=== PATIENT | female | born 1970 | race Asian ===

== ENCOUNTER 2016-12-06 15:44 | Emergency (ER) | payer OTHER ==
--- NOTE | 2016-12-06 16:16 | EKG ---
[facility] [address] [place] [address] Test Date: 2016-12-06 Test Time: 15:54:46 Pat Name: ABHIJEET QUEEN Department: Room: Gender: F Vp Rheumatology: : 1970 Requested By: TARAH PAIZ Order Number: [id number] Reading MD: Elio Jackman Measurements Intervals [place] Rate: 77 P: 48 SC: 154 QRS: 74 QRSD: 82 T: 20 QT: 378 QTc: 430 Interpretive Statements SINUS RHYTHM Electronically Signed On 12-11-2016 14:01:50 CDT by Elio Jackman
[2016-12-06 16:21] LABS: BILIRUBIN,URINE NEGATIVE (NEG); GLUCOSE,URINE NEGATIVE (NEG); NITRITE,URINE NEGATIVE (NEG); PROTEIN,URINE NEGATIVE (NEG-TRACE); UROBILINOGEN,URINE 0.2 mg/dL (0.2 mg/dL)
[2016-12-06 16:27] LABS: BACTERIA,URINE FEW /HPF (0-FEW); RBC,URINE RARE /HPF (0-2); SQUAMOUS EPITHELIAL CELL,UR MOD /LPF; WBC,URINE RARE /HPF (0-4)
[2016-12-06 16:28] LABS: BARBITURATES NEG (NEG); BENZODIAZEPINES NEG (NEG); CANNABINOIDS NEG (NEG); COCAINE NEG (NEG); METHADONE NEG (NEG); OPIATES NEG (NEG); PHENCYCLIDINE NEG (NEG)
[2016-12-06 16:30] LABS: BASO # 0.1 x10^3/uL (0.0-0.2); BASO % 1 % (0-3); EOS % 1 % (0-3); HEMATOCRIT 37.9 % (36.0-47.0); HEMOGLOBIN 13.2 g/dL (12.0-15.5); LYMPH # 1.6 x10^3/uL (1.0-4.8); LYMPH % 20 % (24-48); MEAN CORPUSCULAR HEMOGLOBIN 27 pg (25-35); MEAN CORPUSCULAR HGB CONC 35 g/dL (31-37); MEAN CORPUSCULAR VOLUME 78 fL (79-100); MONO % 3 % (0-9); NEUT % 75 % (31-73); PLATELET COUNT 314 x10^3/uL (140-400); RED BLOOD COUNT 4.89 x10^6/uL (3.50-5.40); WHITE BLOOD COUNT 7.9 x10^3/uL (4.0-11.0)
--- NOTE | 2016-12-06 16:37 | RAD ---
EXAM: CHEST 1 VIEW History: Dizziness, headache COMPARISON: None TECHNIQUE: Single portable radiograph of the chest FINDINGS: The cardiac silhouette is unremarkable. The lungs are clear bilaterally. The costophrenic sulci are clear and well demarcated. IMPRESSION: No radiographic evidence of an acute cardiopulmonary process.
[2016-12-06 16:43] LABS: CREATININE 0.6 mg/dL (0.6-1.0); GFR 108.6; POTASSIUM 3.6 mmol/L (3.5-5.1)
[2016-12-06 16:49] LABS: ALBUMIN 3.6 g/dL (3.4-5.0); ALBUMIN/GLOBULIN RATIO 0.8 (1.0-1.7); TOTAL BILIRUBIN 0.4 mg/dL (0.2-1.0); TOTAL PROTEIN 8.1 g/dL (6.4-8.2)
--- NOTE | 2016-12-06 16:52 | RAD ---
CT of the head without contrast, 12/06/2016: History: Dizziness and vomiting The ventricles are within normal limits in size. There is no shift of the midline structures. There is no evidence of acute intracranial hemorrhage or mass effect. IMPRESSION: No acute intracranial abnormality is detected. PQRS Compliance Statement: One or more of the following individualized dose reduction techniques were utilized for this examination: 1. Automated exposure control 2. Adjustment of the mA and/or kV according to patient size 3. Use of iterative reconstruction technique
[2016-12-06 16:53] VITALS: BP 131/79
--- NOTE | 2016-12-06 17:00 | ED.ADGEN ---
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 Patient states she woke up this morning as soon as she opened her eyes she felt as though the room was spinning around her. She states that it was worse with motion. She states she did not have any vomiting although she did feel very nauseous. Denies any abdominal pain, any chest pain or shortness of breath, any weakness numbness or tingling. She states that she does have nasal congestion but no ear pain, states that her nasal congestion is "there all the time". Patient denies any injuries, any vision changes, states that this is been persistent for about 7 hours, however en route to the emergency department and the car she states her symptoms improved. She states the symptoms were worse with moving her head from one side to the other, though not worse on one side versus the other, her only she is unable to induce the symptoms. She states that she has experienced similar symptoms previously but they have not been as intense or as prolonged. She has not taken any medications prior to coming to the ED. She states that her symptoms are significantly improved at this time. Review of Systems Review of Systems Constitutional: Denies fever or chills. [] Eyes: Denies change in visual acuity. [] HENT: Denies nasal congestion or sore throat. [] Respiratory: Denies cough or shortness of breath. [] Cardiovascular: Denies chest pain or edema. [] GI: Denies abdominal pain, vomiting, bloody stools or diarrhea. [] Nausea. : Denies dysuria. [] Musculoskeletal: Denies back pain or joint pain. [] Integument: Denies rash. [] Neurologic: Denies headache, focal weakness or sensory changes. Vertiginous symptoms worsened with motion. Nausea. Endocrine: Denies polyuria or polydipsia. [] Lymphatic: Denies swollen glands. [] Psychiatric: Denies depression or anxiety. [] Current Medications Current Medications Current Medications Medications (Trade) Dose Ordered Sig/Trae Start Time Stop Time Status Last Admin Dose Admin Meclizine HCl (Antivert) 25 mg 1X ONCE 12/06/16 17:15 12/06/16 17:16 DC 12/06/16 17:12 25 MG Allergies Allergies Allergies Coded Allergies Type Severity Reaction Last Updated Verified No Known Drug Allergies 12/06/16 No Physical Exam Physical Exam Constitutional: Well developed, well nourished, no acute distress, non-toxic appearance. [] HENT: Normocephalic, atraumatic, bilateral external ears normal, oropharynx moist, no oral exudates, nose normal. [] Eyes: PERRLA, EOMI, conjunctiva normal, no discharge. [] Neck: Normal range of motion, no tenderness, supple, no stridor. [] Cardiovascular:Heart rate regular rhythm, no murmur, S1, S2, rubs or gallops. [] Lungs & Thorax: Bilateral breath sounds clear to auscultation, no wheezing, rhonchi, rales. No chest or crepitus or tenderness. [] Abdomen: Bowel sounds normal, soft, no tenderness, no rebound, rigidity, no guarding, no masses, no pulsatile masses. [] Skin: Warm, dry, no erythema, no rash. [] Back: No tenderness, no CVA tenderness. [] Extremities: No tenderness, no cyanosis, no clubbing, ROM intact, no edema. [] Neurologic: Alert and oriented X 3, normal motor function, normal sensory function, no focal deficits noted. Normal neurologic examination, no nystagmus. [] Psychologic: Affect normal, judgement normal, mood normal. [] Current Patient Data Vital Signs Vital Signs Date Time Temp Pulse Resp B/P (MAP) Pulse Ox O2 Delivery O2 Flow Rate FiO2 12/06/16 16:53 76 18 131/79 (96) 99 Room Air Lab Values Laboratory Tests Test 12/06/16 15:57 12/06/16 16:05 Urine Collection Type Void Urine Color Yellow Urine Clarity Clear Urine pH 6.0 Urine Specific [place] 1.020 Urine Protein Negative mg/dL (NEG-TRACE) Urine Glucose (UA) Negative mg/dL (NEG) Urine Ketones (Stick) Negative mg/dL (NEG) Urine Blood Negative (NEG) Urine Nitrite Negative (NEG) Urine Bilirubin Negative (NEG) Urine Urobilinogen Dipstick 0.2 mg/dL (0.2 mg/dL) Urine Leukocyte Esterase Negative (NEG) Urine RBC Rare /HPF (0-2) Urine WBC Rare /HPF (0-4) Urine Squamous Epithelial Cells Mod /LPF Urine Bacteria Few /HPF (0-FEW) Urine Mucus Marked /LPF Urine Opiates Screen Neg (NEG) Urine Methadone Screen Neg (NEG) Urine Barbiturates Neg (NEG) Urine Phencyclidine Screen Neg (NEG) Urine Amphetamine/Methamphetamine Neg (NEG) Urine Benzodiazepines Screen Neg (NEG) Urine Cocaine Screen Neg (NEG) Urine Cannabinoids Screen Neg (NEG) Urine Ethyl Alcohol Neg (NEG) White Blood Count 7.9 x10^3/uL (4.0-11.0) Red Blood Count 4.89 x10^6/uL (3.50-5.40) Hemoglobin 13.2 g/dL (12.0-15.5) Hematocrit 37.9 % (36.0-47.0) Mean Corpuscular Volume 78 fL (79-100) L Mean Corpuscular Hemoglobin 27 pg (25-35) Mean Corpuscular Hemoglobin Concent 35 g/dL (31-37) Red Cell Distribution Width 13.0 % (11.5-14.5) Platelet Count 314 x10^3/uL (140-400) Neutrophils (%) (Auto) 75 % (31-73) H Lymphocytes (%) (Auto) 20 % (24-48) L Monocytes (%) (Auto) 3 % (0-9) Eosinophils (%) (Auto) 1 % (0-3) Basophils (%) (Auto) 1 % (0-3) Neutrophils # (Auto) 5.9 x10^3uL (1.8-7.7) Lymphocytes # (Auto) 1.6 x10^3/uL (1.0-4.8) Monocytes # (Auto) 0.3 x10^3/uL (0.0-1.1) Eosinophils # (Auto) 0.1 x10^3/uL (0.0-0.7) Basophils # (Auto) 0.1 x10^3/uL (0.0-0.2) Sodium Level 135 mmol/L (136-145) L Potassium Level 3.6 mmol/L (3.5-5.1) Chloride Level 101 mmol/L (98-107) Carbon Dioxide Level 26 mmol/L (21-32) Anion Gap 8 (6-14) Blood Urea Nitrogen 12 mg/dL (7-20) Creatinine 0.6 mg/dL (0.6-1.0) Estimated GFR (Cockcroft-Gault) 108.6 BUN/Creatinine Ratio 20 (6-20) Glucose Level 159 mg/dL (70-99) H Calcium Level 9.0 mg/dL (8.5-10.1) Total Bilirubin 0.4 mg/dL (0.2-1.0) Aspartate Amino Transferase (AST) 24 U/L (15-37) Alanine Aminotransferase (ALT) 30 U/L (14-59) Alkaline Phosphatase 48 U/L (46-116) Troponin I Quantitative < 0.017 ng/mL (0.000-0.055) Total Protein 8.1 g/dL (6.4-8.2) Albumin 3.6 g/dL (3.4-5.0) Albumin/Globulin Ratio 0.8 (1.0-1.7) L Laboratory Tests 12/06/16 16:05 Laboratory Tests 12/06/16 16:05 EKG EKG EC: Sinus rhythm, heart rate 77 bpm, upright axis, QTC of 4:30, MO 154, QRS of 82, contour normality is noted in V3, no ST elevation or depression, abnormal ECG, does not meet STEMI criteria. As interpreted by me. [] Radiology/Procedures Radiology/Procedures [] [facility] [address] [place] [address] IMAGING REPORT Signed PATIENT: ABHIJEET QUEEN ACCOUNT: [id number] : 1970 LOCATION: ER AGE: 46 SEX: F EXAM STATUS: PRE ER ORD. PHYSICIAN: TARAH PAIZ DO REASON: Dizziness PROCEDURE: CHEST AP ONLY EXAM: CHEST 1 VIEW History: Dizziness, headache COMPARISON: None TECHNIQUE: Single portable radiograph of the chest FINDINGS: The cardiac silhouette is unremarkable. The lungs are clear bilaterally. The costophrenic sulci are clear and well demarcated. IMPRESSION: No radiographic evidence of an acute cardiopulmonary process. DICTATED and SIGNED BY: GINETTE WALLACE MD DATE: 12/06/161633 CC: TARAH PAIZ DO ~ Impressions: [facility] [address] [place] [address] IMAGING REPORT Signed PATIENT: ABHIJEET QUEEN ACCOUNT: [id number] : 1970 LOCATION: ER AGE: 46 SEX: F EXAM STATUS: REG ER ORD. PHYSICIAN: TARAH PAIZ DO REASON: Dizziness PROCEDURE: CT HEAD WO CONTRAST CT of the head without contrast, 12/06/2016: History: Dizziness and vomiting The ventricles are within normal limits in size. There is no shift of the midline structures. There is no evidence of acute intracranial hemorrhage or mass effect. IMPRESSION: No acute intracranial abnormality is detected. RS Compliance Statement: One or more of the following individualized dose reduction techniques were utilized for this examination: 1. Automated exposure control 2. Adjustment of the mA and/or kV according to patient size 3. Use of iterative reconstruction technique DICTATED and SIGNED BY: NANY MENA MD DATE: 12/06/161647 CC: TARAH PAIZ DO; NO PCP ~ Course & Med Decision Making Course & Med Decision Making Pertinent Labs and Imaging studies reviewed. (See chart for details) Unable to reproduce symptoms on examination the patient. She is resting comfortably at this time, with a normal neurologic examination. After discussion at bedside, patient is agreeable to receiving an evaluation including ECG, CT imaging of the head, chest x-ray, and laboratory studies. Imaging laboratory studies not reveal any concerning findings, laboratory studies reveal a mild hyponatremia 135, no other concerning findings identified. Patient received meclizine in the ED, on reevaluation states she is feeling well. I did discuss findings as above with Dr. Blake of neurology, patient is not exhibiting any vision changes, weakness, or other concerning findings, and has no concerning history including note trauma to the head or neck or head or neck pain. He agrees that examination is most consistent with labyrinthitis, recommends that the patient follow-up in his office, I will also discharge the patient with a prescription for meclizine to be used as needed. I discussed this plan in detail with patient and her at bedside, including return precautions and medication instructions. Patient voiced understanding and agreement with plan as stated. Laboratory trial performed in the emergency department without recurrence of dizziness or other concerning symptoms. Patient discharged home from the emergency department prescription for meclizine and plan as above, ambulating without difficulty upon exiting the emergency department with her . Dragon Disclaimer Dragon Disclaimer This electronic medical record was generated, in whole or in part, using a voice recognition dictation system. Departure Impression: Primary Impression: Vertigo Additional Impression: Labyrinthitis Disposition: HOME, SELF-CARE Condition: IMPROVED Scripts Meclizine Hcl (MECLIZINE HCL) 25 Mg Tablet 25 MG PO TID PRN Y for DIZZINESS, #12 TAB Prov: TARAH PAIZ DO 12/06/16 Problem Qualifiers TARAH PAIZ DO December 06, 2016 17:00
[2016-12-06] MEDS ORDERED: MECLIZINE HCL 12.5 MG TABLET. PO ONE (17:15)
[2016-12-06] MEDS ORDERED: MECL25TA3 PO (17:52)
== END 2016-12-06 18:05 | disposition home or self-care (01) ==
LOC: ER 15:44
DX: R42 Dizziness and giddiness (principal); H83.09 Labyrinthitis, unspecified ear; R11.0 Nausea; R51 Headache
CPT/HCPCS: 36415; 70450; 71010; 80053; 80305; 80320; 81001; 81025; 84484; 85027; 93005; 99285; J8597; G0480; G0481

== ENCOUNTER 2017-01-30 12:20 | Emergency (ER) | payer OTHER ==
[~2017-01-30] VITALS: Ht 154.9 cm; Wt 66.2 kg
[~2017-01-30 12:20] MED LIST: MECL25TA3 PO
[2017-01-30 12:30] VITALS: BP 147/83
--- NOTE | 2017-01-30 12:48 | PHYS DOC ---
Past Medical History Past Medical History: No Pertinent History Past Surgical History: No Surgical History Alcohol Use: None Drug Use: None Adult General Chief Complaint Chief Complaint: Neck Pain [facility] HPI Patient is a 46 year old female presents emergency department stating that she has having right lateral neck pain and discomfort. She states she's been having this for the last 2-3 days. She is taken ibuprofen for the pain and discomfort 2 tablets which is helped with the pain. She states that she feels throbbing at times. She is unsure what causes the pain to be worse. Patient is a very poor historian as she has broken [place]. Patient denies any lightheadedness dizziness or any headaches. Patient does state that she has increased pain with turning her head. Review of Systems Review of Systems Constitutional: Denies fever or chills [] Eyes: Denies change in visual acuity, redness, or eye pain [] HENT: Denies nasal congestion or sore throat [] Respiratory: Denies cough or shortness of breath [] Cardiovascular: No additional information not addressed in HPI [] GI: Denies abdominal pain, nausea, vomiting, bloody stools or diarrhea [] : Denies dysuria or hematuria [] Musculoskeletal: Denies back pain or joint pain, complaint of left lateral neck pain Integument: Denies rash or skin lesions [] Neurologic: Denies headache, focal weakness or sensory changes [] Endocrine: Denies polyuria or polydipsia [] Allergies Allergies Allergies Coded Allergies Type Severity Reaction Last Updated Verified No Known Drug Allergies 12/06/16 No Physical Exam Physical Exam Constitutional: Well developed, well nourished, no acute distress, non-toxic appearance. [] HENT: Normocephalic, atraumatic, bilateral external ears normal, oropharynx moist, no oral exudates, nose normal. [] Eyes: PERRLA, EOMI, conjunctiva normal, no discharge. [] Neck: Normal range of motion, no tenderness, supple, no stridor. [] Cardiovascular:Heart rate regular rhythm, no murmur [] Lungs & Thorax: Bilateral breath sounds clear to auscultation [] Skin: Warm, dry, no erythema, no rash. [] Back: No cervical spine or thoracic spine tenderness, no step-offs no deformities no crepitus noted. Patient did have tenderness noted on the left lateral part of the neck. Peripheral pulse was palpable. Extremities: No tenderness, no cyanosis, no clubbing, ROM intact, no edema. [] Neurologic: Alert and oriented X 3, normal motor function, normal sensory function, no focal deficits noted. [] Psychologic: Affect normal, judgement normal, mood normal. [] Current Patient Data Vital Signs Vital Signs Date Time Temp Pulse Resp B/P (MAP) Pulse Ox O2 Delivery O2 Flow Rate FiO2 01/30/17 12:30 97.8 76 16 97 Room Air 97.8 EKG EKG [] Radiology/Procedures Radiology/Procedures [] Course & Med Decision Making Course & Med Decision Making Pertinent Labs and Imaging studies reviewed. (See chart for details) Instructed the patient take anywhere from 600 mg of ibuprofen every 8 hours with food. Ice packs on 20 minutes off 20 minutes several times today or warm moist heat she is unable to tolerate the ice. Patient was instructed to follow- up with her primary care physician for further evaluation. Patient and family member at bedside both agree with discharge instructions treatment regimens and follow-up recommendations. Signs symptoms to return back to emergency department been provided. Offered patient carotid doppler with patient and family determining they will followup with PCP for outpatient treatment. [] Dragon Disclaimer Dragon Disclaimer This electronic medical record was generated, in whole or in part, using a voice recognition dictation system. Departure Departure Impression: Primary Impression: Neck pain Disposition: 01 HOME, SELF-CARE Condition: STABLE Referrals: NO PCP (PCP) Patient Instructions: Soft Tissue Injury of the Neck, [id number] Additional Instructions: Activity as tolerated. Ibuprofen 600-800 mg every 8 hours with food septic if you develop upset stomach. You may try warm moist packs to the area for comfort. Follow-up through primary care physician in the next 5-7 days. Return back to emergency percent symptoms of become worse. PASCUAL MARTÍNEZ KILN [employer]W TENDER Jan 30, 2017 12:48
== END 2017-01-30 12:49 | disposition home or self-care (01) ==
LOC: ER 12:20
DX: M54.2 Cervicalgia (principal); R51 Headache
CPT/HCPCS: 99281

== ENCOUNTER 2017-08-30 23:01 | Emergency (ER) | payer OTHER ==
[2017-08-31 00:01] LABS: URINE HCG POC HCG NEGATIVE (Negative)
[2017-08-31] MEDS: ONDANSETRON ODT 4 MG TAB.RAPDIS. PO ×2 (00:07)
[2017-08-31] MEDS: oxyCODONE/APAP 5/325 1 TAB TABLET PO ×2 (00:07)
== END 2017-08-31 01:45 | disposition home or self-care (01) ==
LOC: ER 23:01
DX: R51 Headache (principal); R11.0 Nausea; Z88.8 Allergy status to other drugs, medicaments and biological substances
CPT/HCPCS: 81025; 99283; Q0162

== ENCOUNTER 2018-06-11 09:03 | Emergency (ER) | payer OTHER ==
[~2018-06-11] VITALS: Ht 154.9 cm; Wt 66.2 kg
[2018-06-11] MEDS ORDERED: ACETAMINOPHEN 500 MG TABLET PO ONE (10:15)
[2018-06-11 10:39] LABS: BILIRUBIN,URINE NEGATIVE (NEG); CLARITY,URINE CLOUDY; COLOR,URINE YELLOW; NITRITE,URINE NEGATIVE (NEG); PH,URINE 6.5; PROTEIN,URINE NEGATIVE (NEG-TRACE); UROBILINOGEN,URINE 0.2 mg/dL (0.2 mg/dL)
[2018-06-11 10:56] LABS: SQUAMOUS EPITHELIAL CELL,UR MOD /LPF
[2018-06-11 10:57] LABS: BACTERIA,URINE 0 /HPF (0-FEW); RBC,URINE 0 /HPF (0-2)
[2018-06-11 11:04] LABS: BASO # 0.1 x10^3/uL (0.0-0.2); BASO % 1 % (0-3); EOS # 0.3 x10^3/uL (0.0-0.7); EOS % 4 % (0-3); HEMATOCRIT 38.6 % (36.0-47.0); HEMOGLOBIN 13.7 g/dL (12.0-15.5); LYMPH # 2.2 x10^3/uL (1.0-4.8); LYMPH % 32 % (24-48); MEAN CORPUSCULAR HEMOGLOBIN 28 pg (25-35); MEAN CORPUSCULAR HGB CONC 36 g/dL (31-37); MEAN CORPUSCULAR VOLUME 78 fL (79-100); MONO # 0.3 x10^3/uL (0.0-1.1); MONO % 4 % (0-9); NEUT % 59 % (31-73); PLATELET COUNT 327 x10^3/uL (140-400); RED BLOOD COUNT 4.96 x10^6/uL (3.50-5.40); RED CELL DISTRIBUTION WIDTH 12.9 % (11.5-14.5); WHITE BLOOD COUNT 6.8 x10^3/uL (4.0-11.0)
[2018-06-11 11:10] LABS: CALCIUM 9.6 mg/dL (8.5-10.1); CREATININE 0.7 mg/dL (0.6-1.0); GFR 90.1; POTASSIUM 3.7 mmol/L (3.5-5.1)
[2018-06-11 11:17] LABS: ALBUMIN 4.1 g/dL (3.4-5.0); ALBUMIN/GLOBULIN RATIO 0.9 (1.0-1.7); TOTAL BILIRUBIN 0.4 mg/dL (0.2-1.0); TOTAL PROTEIN 8.5 g/dL (6.4-8.2)
--- NOTE | 2018-06-11 11:35 | PHYS DOC ---
Past Medical History Past Medical History: Hypotension Additional Past Medical Histor: VERTIGO Past Surgical History: No Surgical History Alcohol Use: None Drug Use: None Adult General Chief Complaint Chief Complaint: HYPERTENSION HPI HPI Patient is a 48 year old [f__sex] who presents with [] Review of Systems Review of Systems Constitutional: Denies fever or chills [] Eyes: Denies change in visual acuity, redness, or eye pain [] HENT: Denies nasal congestion or sore throat [] Respiratory: Denies cough or shortness of breath [] Cardiovascular: No additional information not addressed in HPI [] GI: Denies abdominal pain, nausea, vomiting, bloody stools or diarrhea [] : Denies dysuria or hematuria [] Musculoskeletal: Denies back pain or joint pain [] Integument: Denies rash or skin lesions [] Neurologic: Denies headache, focal weakness or sensory changes [] Endocrine: Denies polyuria or polydipsia [] All other systems were reviewed and found to be within normal limits, except as documented in this note. Current Medications Current Medications Current Medications Medications (Trade) Dose Ordered Sig/Trae Start Time Stop Time Status Last Admin Dose Admin Acetaminophen (Tylenol) 1,000 mg 1X ONCE 06/11/18 10:15 06/11/18 10:16 DC 06/11/18 10:45 1,000 MG Allergies Allergies Allergies Coded Allergies Type Severity Reaction Last Updated Verified diphenhydramine Allergy Intermediate SOA 08/30/17 Yes Physical Exam Physical Exam Constitutional: Well developed, well nourished, no acute distress, non-toxic appearance. [] HENT: Normocephalic, atraumatic, bilateral external ears normal, oropharynx moist, no oral exudates, nose normal. [] Eyes: PERRLA, EOMI, conjunctiva normal, no discharge. [] Neck: Normal range of motion, no tenderness, supple, no stridor. [] Cardiovascular:Heart rate regular rhythm, no murmur [] Lungs & Thorax: Bilateral breath sounds clear to auscultation [] Abdomen: Bowel sounds normal, soft, no tenderness, no masses, no pulsatile masses. [] Skin: Warm, dry, no erythema, no rash. [] Back: No tenderness, no CVA tenderness. [] Extremities: No tenderness, no cyanosis, no clubbing, ROM intact, no edema. [] Neurologic: Alert and oriented X 3, normal motor function, normal sensory function, no focal deficits noted. [] Psychologic: Affect normal, judgement normal, mood normal. [] Current Patient Data Vital Signs Vital Signs Date Time Temp Pulse Resp B/P (MAP) Pulse Ox O2 Delivery O2 Flow Rate FiO2 06/11/18 09:55 96.8 91 18 138/104 (115) Room Air 96.8 06/11/18 09:10 98 Lab Values Laboratory Tests Test 06/11/18 10:27 06/11/18 10:54 Urine Collection Type Unknown Urine Color Yellow Urine Clarity Cloudy Urine pH 6.5 Urine Specific [place] 1.025 Urine Protein Negative mg/dL (NEG-TRACE) Urine Glucose (UA) Negative mg/dL (NEG) Urine Ketones (Stick) Negative mg/dL (NEG) Urine Blood Negative (NEG) Urine Nitrite Negative (NEG) Urine Bilirubin Negative (NEG) Urine Urobilinogen Dipstick 0.2 mg/dL (0.2 mg/dL) Urine Leukocyte Esterase Negative (NEG) Urine RBC 0 /HPF (0-2) Urine WBC 1-4 /HPF (0-4) Urine Squamous Epithelial Cells Mod /LPF Urine Bacteria 0 /HPF (0-FEW) Urine Mucus Slight /LPF White Blood Count 6.8 x10^3/uL (4.0-11.0) Red Blood Count 4.96 x10^6/uL (3.50-5.40) Hemoglobin 13.7 g/dL (12.0-15.5) Hematocrit 38.6 % (36.0-47.0) Mean Corpuscular Volume 78 fL (79-100) L Mean Corpuscular Hemoglobin 28 pg (25-35) Mean Corpuscular Hemoglobin Concent 36 g/dL (31-37) Red Cell Distribution Width 12.9 % (11.5-14.5) Platelet Count 327 x10^3/uL (140-400) Neutrophils (%) (Auto) 59 % (31-73) Lymphocytes (%) (Auto) 32 % (24-48) Monocytes (%) (Auto) 4 % (0-9) Eosinophils (%) (Auto) 4 % (0-3) H Basophils (%) (Auto) 1 % (0-3) Neutrophils # (Auto) 4.0 x10^3uL (1.8-7.7) Lymphocytes # (Auto) 2.2 x10^3/uL (1.0-4.8) Monocytes # (Auto) 0.3 x10^3/uL (0.0-1.1) Eosinophils # (Auto) 0.3 x10^3/uL (0.0-0.7) Basophils # (Auto) 0.1 x10^3/uL (0.0-0.2) Sodium Level 137 mmol/L (136-145) Potassium Level 3.7 mmol/L (3.5-5.1) Chloride Level 99 mmol/L (98-107) Carbon Dioxide Level 29 mmol/L (21-32) Anion Gap 9 (6-14) Blood Urea Nitrogen 25 mg/dL (7-20) H Creatinine 0.7 mg/dL (0.6-1.0) Estimated GFR (Cockcroft-Gault) 90.1 BUN/Creatinine Ratio 36 (6-20) H Glucose Level 98 mg/dL (70-99) Calcium Level 9.6 mg/dL (8.5-10.1) Total Bilirubin 0.4 mg/dL (0.2-1.0) Aspartate Amino Transferase (AST) 27 U/L (15-37) Alanine Aminotransferase (ALT) 41 U/L (14-59) Alkaline Phosphatase 56 U/L (46-116) Total Protein 8.5 g/dL (6.4-8.2) H Albumin 4.1 g/dL (3.4-5.0) Albumin/Globulin Ratio 0.9 (1.0-1.7) L Laboratory Tests 06/11/18 10:54 Laboratory Tests 06/11/18 10:54 EKG EKG [] Radiology/Procedures Radiology/Procedures [] Course & Med Decision Making Course & Med Decision Making Pertinent Labs and Imaging studies reviewed. (See chart for details) [] Dragon Disclaimer Dragon Disclaimer This electronic medical record was generated, in whole or in part, using a voice recognition dictation system. Departure Departure Impression: Primary Impression: Hypertension Disposition: HOME, SELF-CARE Condition: STABLE Referrals: AMILCAR DO MD (PCP) Patient Instructions: Hypertension Additional Instructions: Follow-up with your primary care provider for further evaluation of your hypertension. You may take Tylenol for headache. If worsening return to the emergency department. DL SMITH APRN Jun 11, 2018 11:35
[2018-06-11 11:55] VITALS: BP 114/62
== END 2018-06-11 11:59 | disposition home or self-care (01) ==
LOC: ER 09:03
DX: I10 Essential (primary) hypertension (principal); Z88.8 Allergy status to other drugs, medicaments and biological substances
CPT/HCPCS: 36415; 80053; 81001; 85025; 99283

== ENCOUNTER → 2018-07-18 | Outpatient (CLI) | payer OTHER ==
[2018-07-18 11:40] LABS: ALBUMIN 4.3 g/dL (3.4-5.0); ALBUMIN/GLOBULIN RATIO 0.9 (1.0-1.7); CALCIUM 9.6 mg/dL (8.5-10.1); CHOLESTEROL/HDL RATIO 4.2; CREATININE 0.6 mg/dL (0.6-1.0); GFR 107.6; POTASSIUM 3.3 mmol/L (3.5-5.1); TOTAL BILIRUBIN 0.3 mg/dL (0.2-1.0); TOTAL PROTEIN 9.1 g/dL (6.4-8.2)
[2018-07-18 20:10] LABS: HEMOGLOBIN A1C 5.7 % (4.8-5.6)
== END | disposition home or self-care (01) ==
LOC: LAB 10:43
PROVIDERS: ATTEND Family Medicine
DX: E78.1 Pure hyperglyceridemia (principal)
CPT/HCPCS: 36415; 80053; 80061; 83036

== ENCOUNTER → 2019-04-04 | Outpatient (CLI) | payer OTHER ==
[2019-03-10 15:00] VITALS: BP 159/78
[~2019-04-04] MED LIST changes: +GEMF600T8 PO; +HYDR12.58 PO; +POTA10TA12 PO; +RIVA15TA PO; +hydrochlorothiazide
[2019-04-04 10:44] LABS: ALBUMIN 3.8 g/dL (3.4-5.0); ALBUMIN/GLOBULIN RATIO 0.8 (1.0-1.7); CALCIUM 9.3 mg/dL (8.5-10.1); CREATININE 0.7 mg/dL (0.6-1.0); GFR 90.1; POTASSIUM 3.8 mmol/L (3.5-5.1); TOTAL BILIRUBIN 0.3 mg/dL (0.2-1.0); TOTAL PROTEIN 8.4 g/dL (6.4-8.2)
[2019-04-04 10:46] LABS: CHOLESTEROL/HDL RATIO 6.3
[2019-04-05 03:12] LABS: HEMOGLOBIN A1C 5.8 % (4.8-5.6)
== END | disposition home or self-care (01) ==
LOC: LAB 09:59
PROVIDERS: ATTEND Family Medicine
DX: E78.1 Pure hyperglyceridemia (principal)
CPT/HCPCS: 36415; 80053; 80061; 83036

== ENCOUNTER 2019-05-01 04:40 | Emergency (ER) | payer OTHER ==
[~2019-05-01] VITALS: Ht 154.9 cm; Wt 72.6 kg
[2019-05-01 05:15] LABS: BASO # 0.1 x10^3/uL (0.0-0.2); BASO % 1 % (0-3); EOS # 0.3 x10^3/uL (0.0-0.7); EOS % 4 % (0-3); HEMATOCRIT 38.9 % (36.0-47.0); HEMOGLOBIN 13.4 g/dL (12.0-15.5); LYMPH # 2.8 x10^3/uL (1.0-4.8); LYMPH % 35 % (24-48); MEAN CORPUSCULAR HEMOGLOBIN 27 pg (25-35); MEAN CORPUSCULAR HGB CONC 34 g/dL (31-37); MEAN CORPUSCULAR VOLUME 78 fL (79-100); MONO # 0.5 x10^3/uL (0.0-1.1); MONO % 6 % (0-9); NEUT # 4.4 x10^3/uL (1.8-7.7); NEUT % 55 % (31-73); PLATELET COUNT 434 x10^3/uL (140-400); RED BLOOD COUNT 4.97 x10^6/uL (3.50-5.40); RED CELL DISTRIBUTION WIDTH 13.5 % (11.5-14.5); WHITE BLOOD COUNT 7.9 x10^3/uL (4.0-11.0)
[2019-05-01 05:26] LABS: CALCIUM 9.7 mg/dL (8.5-10.1); CREATININE 0.7 mg/dL (0.6-1.0); GFR 90.1; POTASSIUM 3.1 mmol/L (3.5-5.1)
[2019-05-01 05:29] VITALS: BP 138/87
--- NOTE | 2019-05-01 05:32 | PHYS DOC ---
Past Medical History Past Medical History: Bipolar, Hypertension, Other Additional Past Medical Histor: vertigo Past Surgical History: No Surgical History Alcohol Use: None Drug Use: None Adult General Chief Complaint Chief Complaint: MULTIPLE COMPLAINTS [facility] HPI Patient is a 48-year-old female who presents with approximately 6 week to 8 week history of intermittent chest discomfort that she states occurs at night after taking her medications and when she lies down for bed. She states that she has a difficult time falling asleep and also states that she gets to feeling jittery before bed. Currently she denies any pain or other complaints. Patient had recently been admitted into the hospital and can [place] for pulmonary emboli and is on Xarelto. She denies any shortness of breath. Patient does take a number of medications at night and she wonders if those may be contributing to her disco mfort.[] Review of Systems Review of Systems Constitutional: Denies fever or chills [] Respiratory: Denies cough or shortness of breath [] Cardiovascular: No additional information not addressed in HPI [] GI: Denies abdominal pain, nausea, vomiting or diarrhea [] Integument: Denies rash or skin lesions [] Neurologic: Denies headache, focal weakness or sensory changes [] All other systems were reviewed and found to be within normal limits, except as documented in this note. Current Medications Current Medications Current Medications Medications (Trade) Dose Ordered Sig/Trae Start Time Stop Time Status Last Admin Dose Admin Potassium Chloride (Klor-Con) 40 meq 1X ONCE 05/01/19 06:00 05/01/19 06:01 UNV Allergies Allergies Allergies Coded Allergies Type Severity Reaction Last Updated Verified diphenhydramine Allergy Intermediate SOA 08/30/17 Yes Physical Exam Physical Exam Constitutional: Well developed, well nourished, no acute distress, non-toxic appearance. [] HENT: Normocephalic, atraumatic, bilateral external ears normal, oropharynx moist, no oral exudates, nose normal. [] Eyes: PERRLA, EOMI, conjunctiva normal, no discharge. [] Neck: Normal range of motion, no tenderness, supple. [] Cardiovascular: Regular rate and rhythm[] Lungs & Thorax: Bilateral breath sounds clear to auscultation [] Abdomen: Bowel sounds normal, soft, no tenderness. [] Skin: Warm, dry, no erythema, no rash. [] Extremities: No tenderness, no cyanosis, no clubbing, ROM intact. [] Neurologic: Alert and oriented X 3, no focal deficits noted. [] Current Patient Data Vital Signs Vital Signs Date Time Temp Pulse Resp B/P (MAP) Pulse Ox O2 Delivery O2 Flow Rate FiO2 05/01/19 04:40 97.5 82 17 141/84 (103) 99 Room Air 97.5 Lab Values Laboratory Tests Test 05/01/19 04:50 05/01/19 05:30 White Blood Count 7.9 x10^3/uL (4.0-11.0) Red Blood Count 4.97 x10^6/uL (3.50-5.40) Hemoglobin 13.4 g/dL (12.0-15.5) Hematocrit 38.9 % (36.0-47.0) Mean Corpuscular Volume 78 fL (79-100) L Mean Corpuscular Hemoglobin 27 pg (25-35) Mean Corpuscular Hemoglobin Concent 34 g/dL (31-37) Red Cell Distribution Width 13.5 % (11.5-14.5) Platelet Count 434 x10^3/uL (140-400) H Neutrophils (%) (Auto) 55 % (31-73) Lymphocytes (%) (Auto) 35 % (24-48) Monocytes (%) (Auto) 6 % (0-9) Eosinophils (%) (Auto) 4 % (0-3) H Basophils (%) (Auto) 1 % (0-3) Neutrophils # (Auto) 4.4 x10^3/uL (1.8-7.7) Lymphocytes # (Auto) 2.8 x10^3/uL (1.0-4.8) Monocytes # (Auto) 0.5 x10^3/uL (0.0-1.1) Eosinophils # (Auto) 0.3 x10^3/uL (0.0-0.7) Basophils # (Auto) 0.1 x10^3/uL (0.0-0.2) Sodium Level 138 mmol/L (136-145) Potassium Level 3.1 mmol/L (3.5-5.1) L Chloride Level 100 mmol/L (98-107) Carbon Dioxide Level 28 mmol/L (21-32) Anion Gap 10 (6-14) Blood Urea Nitrogen 16 mg/dL (7-20) Creatinine 0.7 mg/dL (0.6-1.0) Estimated GFR (Cockcroft-Gault) 90.1 BUN/Creatinine Ratio 23 (6-20) H Glucose Level 115 mg/dL (70-99) H Calcium Level 9.7 mg/dL (8.5-10.1) Magnesium Level 1.9 mg/dL (1.8-2.4) Total Bilirubin 0.2 mg/dL (0.2-1.0) Aspartate Amino Transferase (AST) 25 U/L (15-37) Alanine Aminotransferase (ALT) 31 U/L (14-59) Alkaline Phosphatase 57 U/L (46-116) Troponin I Quantitative < 0.017 ng/mL (0.000-0.055) BZ-[id number]-X-Type Natriuretic Peptide < 5 pg/mL (0-124) Total Protein 8.7 g/dL (6.4-8.2) H Albumin 4.1 g/dL (3.4-5.0) Albumin/Globulin Ratio 0.9 (1.0-1.7) L Lipase 242 U/L (73-393) Thyroid Stimulating Hormone (TSH) 3.704 uIU/mL (0.358-3.74) Urine Collection Type Unknown Urine Color Red Urine Clarity Clear Urine pH Urine Specific [place] Urine Protein mg/dL (NEG-TRACE) Urine Glucose (UA) mg/dL (NEG) Urine Ketones (Stick) mg/dL (NEG) Urine Blood (NEG) Urine Nitrite (NEG) Urine Bilirubin (NEG) Urine Urobilinogen Dipstick mg/dL (0.2 mg/dL) Urine Leukocyte Esterase (NEG) Urine RBC Tntc /HPF (0-2) Urine WBC Occ /HPF (0-4) Urine Bacteria 0 /HPF (0-FEW) Laboratory Tests 05/01/19 04:50 Laboratory Tests 05/01/19 04:50 EKG EKG [] Interpretation Time: EKG demonstrates normal sinus rhythm with rate of 85. Radiology/Procedures Radiology/Procedures [] Impressions: Chest x-ray demonstrates no acute process. Course & Med Decision Making Course & Med Decision Making Pertinent Labs and Imaging studies reviewed. (See chart for details) [] Dragon Disclaimer Dragon Disclaimer This electronic medical record was generated, in whole or in part, using a voice recognition dictation system. Departure Departure Impression: Primary Impression: Insomnia Additional Impression: Atypical chest pain Disposition: HOME, SELF-CARE Condition: STABLE Referrals: AMILCAR DO MD (PCP) Patient Instructions: Chest Pain (Nonspecific), Insomnia Scripts Zolpidem Tartrate (AMBIEN) 5 Mg Tablet 5 MG PO PRN QHS PRN for INSOMNIA, #10 TAB 0 Refills Prov: NATHANIEL HINDS Jr. DO 05/01/19 Problem Qualifiers Primary Impression: Insomnia Insomnia type: unspecified Qualified Codes: G47.00 - Insomnia, unspecified NATHANIEL HINDS Jr. DO May 01, 2019 05:32
[2019-05-01 05:33] LABS: ALBUMIN 4.1 g/dL (3.4-5.0); ALBUMIN/GLOBULIN RATIO 0.9 (1.0-1.7); MAGNESIUM 1.9 mg/dL (1.8-2.4); TOTAL BILIRUBIN 0.2 mg/dL (0.2-1.0); TOTAL PROTEIN 8.7 g/dL (6.4-8.2)
[2019-05-01 05:50] LABS: CLARITY,URINE CLEAR; COLOR,URINE RED
[2019-05-01 05:51] LABS: BACTERIA,URINE 0 /HPF (0-FEW); RBC,URINE TNTC /HPF (0-2); WBC,URINE OCC /HPF (0-4)
--- NOTE | 2019-05-01 05:55 | RAD ---
Study: PORTABLE CHEST 1V Indication: Chest pain. Comparison: 03/09/2019 Findings: Unremarkable cardiomediastinal silhouette and hilar structures. Previously seen haziness at the right infrahilar region is less conspicuous. No pneumothorax, large effusion or lobar infiltrate. Impression: No acute radiographic abnormality of the chest. Electronically signed by: SHEILA VALERIO MD (05/01/2019 5:52 AM) [facility]
[2019-05-01] MEDS ORDERED: ZOLP5TAB PO (05:57)
[2019-05-01] MEDS ORDERED: POTASSIUM CHLORIDE 20 MEQ TABLET.ER. PO ONE (06:00)
--- NOTE | 2019-05-01 06:36 | EKG ---
[facility] [address] [place] [address] Test Date: 2019-05-01 Test Time: 04:53:40 Pat Name: ABHIJEET QUEEN Department: Room: Gender: F Caregivers Homecare: : 1970 Requested By: NATHANIEL HINDS Order Number: [id number] Reading MD: Elio Jackman MD Measurements Intervals [place] Rate: 85 P: 34 MD: 152 QRS: 88 QRSD: 84 T: -3 QT: 366 QTc: 436 Interpretive Statements SINUS RHYTHM Electronically Signed On 05-11-2019 11:51:05 CDT by Elio Jackman MD
== END 2019-05-01 06:15 | disposition home or self-care (01) ==
LOC: ER 04:40
DX: G47.00 Insomnia, unspecified (principal); R07.89 Other chest pain; F31.9 Bipolar disorder, unspecified; I10 Essential (primary) hypertension; Z88.5 Allergy status to narcotic agent
CPT/HCPCS: 36415; 71045; 80053; 81001; 83690; 83735; 83880; 84443; 84484; 85025; 93005; 99285-25

== ENCOUNTER → 2019-06-06 | Outpatient (CLI) | payer OTHER ==
[~2019-06-06] MED LIST changes: +ZOLP5TAB PO
[2019-06-06 11:07] LABS: BASO % 0 % (0-3); EOS # 0.1 x10^3/uL (0.0-0.7); EOS % 2 % (0-3); HEMATOCRIT 37.3 % (36.0-47.0); HEMOGLOBIN 12.7 g/dL (12.0-15.5); LYMPH # 1.6 x10^3/uL (1.0-4.8); LYMPH % 28 % (24-48); MEAN CORPUSCULAR HEMOGLOBIN 27 pg (25-35); MEAN CORPUSCULAR HGB CONC 34 g/dL (31-37); MEAN CORPUSCULAR VOLUME 78 fL (79-100); MONO # 0.2 x10^3/uL (0.0-1.1); MONO % 4 % (0-9); NEUT # 3.9 x10^3/uL (1.8-7.7); NEUT % 66 % (31-73); PLATELET COUNT 423 x10^3/uL (140-400); RED BLOOD COUNT 4.79 x10^6/uL (3.50-5.40); RED CELL DISTRIBUTION WIDTH 13.5 % (11.5-14.5); WHITE BLOOD COUNT 5.9 x10^3/uL (4.0-11.0)
[2019-06-06 11:27] LABS: ALBUMIN 3.8 g/dL (3.4-5.0); ALBUMIN/GLOBULIN RATIO 0.8 (1.0-1.7); CREATININE 0.7 mg/dL (0.6-1.0); GFR 89.7; POTASSIUM 3.8 mmol/L (3.5-5.1); TOTAL BILIRUBIN 0.3 mg/dL (0.2-1.0); TOTAL PROTEIN 8.4 g/dL (6.4-8.2)
[2019-06-06 11:29] LABS: CHOLESTEROL/HDL RATIO 6.4
[2019-06-06 23:08] LABS: HEMOGLOBIN A1C 5.5 % (4.8-5.6)
== END | disposition home or self-care (01) ==
LOC: LAB 10:50
PROVIDERS: ATTEND Internal Medicine
DX: I10 Essential (primary) hypertension (principal); E78.2 Mixed hyperlipidemia; R73.09 Other abnormal glucose
CPT/HCPCS: 36415; 80053; 80061; 82550; 83036; 84443; 85025

== ENCOUNTER → 2020-01-09 | Outpatient (CLI) | payer OTHER ==
[~2020-01-09] MED LIST changes: +MECL-75 PO; -MECL25TA3 PO
[2020-01-09 11:47] LABS: ANION GAP 8 (6-14); BLOOD UREA NITROGEN 10 mg/dL (7-20); CALCIUM 8.3 mg/dL (8.5-10.1); CARBON DIOXIDE 28 mmol/L (21-32); CHLORIDE 102 mmol/L (98-107); CHOLESTEROL 204 mg/dL (0-200); CREATININE 0.6 mg/dL (0.6-1.0); GFR 107.2; GLUCOSE 100 mg/dL (70-99); HDLC 29 mg/dL (40-60); POTASSIUM 3.6 mmol/L (3.5-5.1); SODIUM 138 mmol/L (136-145); TRIGLYCERIDES 522 mg/dL (0-150); VLDLC 104 mg/dL (0-40)
[2020-01-10 02:08] LABS: HEMOGLOBIN A1C 5.7 % (4.8-5.6)
== END ==
LOC: LAB 10:50
PROVIDERS: ATTEND Psychiatry & Neurology Psychiatry
DX: F31.2 Bipolar disorder, current episode manic severe with psychotic features (principal)
CPT/HCPCS: 36415; 80048; 80061; 83036

== ENCOUNTER → 2020-04-19 | Outpatient (CLI) | payer OTHER ==
[2020-04-19 12:20] LABS: BASO % 1 % (0-3); EOS # 0.3 x10^3/uL (0.0-0.7); EOS % 4 % (0-3); HEMOGLOBIN 10.4 g/dL (12.0-15.5); LYMPH # 1.7 x10^3/uL (1.0-4.8); LYMPH % 27 % (24-48); MEAN CORPUSCULAR HEMOGLOBIN 23 pg (25-35); MEAN CORPUSCULAR HGB CONC 33 g/dL (31-37); MEAN CORPUSCULAR VOLUME 71 fL (79-100); MONO # 0.3 x10^3/uL (0.0-1.1); MONO % 5 % (0-9); NEUT # 3.9 x10^3/uL (1.8-7.7); NEUT % 63 % (31-73); PLATELET COUNT 308 x10^3/uL (140-400); RED BLOOD COUNT 4.52 x10^6/uL (3.50-5.40); RED CELL DISTRIBUTION WIDTH 15.8 % (11.5-14.5); WHITE BLOOD COUNT 6.2 x10^3/uL (4.0-11.0)
[2020-04-19 12:38] LABS: ALBUMIN 3.4 g/dL (3.4-5.0); ALBUMIN/GLOBULIN RATIO 0.8 (1.0-1.7); CALCIUM 8.4 mg/dL (8.5-10.1); CREATININE 0.6 mg/dL (0.6-1.0); GFR 107.2; POTASSIUM 3.7 mmol/L (3.5-5.1); TOTAL BILIRUBIN 0.2 mg/dL (0.2-1.0); TOTAL PROTEIN 7.8 g/dL (6.4-8.2)
[2020-04-19 12:39] LABS: CHOLESTEROL/HDL RATIO 7.1
[2020-04-19 14:25] LABS: MICROCYTOSIS MOD; PLT ESTIMATE ADEQUATE (ADEQUATE)
[2020-04-20 02:08] LABS: HEMOGLOBIN A1C 5.7 % (4.8-5.6)
== END | disposition home or self-care (01) ==
LOC: LAB 11:49
PROVIDERS: ATTEND Internal Medicine
DX: I10 Essential (primary) hypertension (principal); E78.2 Mixed hyperlipidemia; R73.09 Other abnormal glucose
CPT/HCPCS: 36415; 80053; 80061; 82550; 83036; 84443; 85025

== ENCOUNTER → 2020-04-23 | Outpatient (CLI) | payer OTHER ==
[~2020-04-23] MED LIST changes: +IOHEXOL 350 MG/ML 100 ML VIAL. IV ONE
--- NOTE | 2020-04-23 10:34 | RAD ---
Examination: CT ANGIOGRAPHY CHEST History: PULMONARY EMBOLISM SOA / Spl. Instructions: INJ 100ML OMNI 350 / History: Comparison/Correlation: 03/09/2019 CTA of the chest Findings: Axial images of the chest were obtained following IV contrast by a pulmonary arteriography protocol. Sagittal and coronal reformatted images were provided. Maximum intensity projection images were provided. Pulmonary arterial vasculature is normal with no thromboembolic disease. Thoracic aorta is unremarkable. No infiltrates or effusions. No enlarged thoracic lymph nodes. Bony structures are grossly unremarkable. Partially visualized upper abdomen is unremarkable. Impression: No PE. Previously seen PE has resolved. No infiltrate. PQRS Compliance Statement: One or more of the following individualized dose reduction techniques were utilized for this examination: 1. Automated exposure control 2. Adjustment of the mA and/or kV according to patient size 3. Use of iterative reconstruction technique Electronically signed by: Ramon Patricia MD (04/23/2020 10:31 AM) [id number]
== END | disposition home or self-care (01) ==
LOC: CT 09:54
PROVIDERS: ATTEND Internal Medicine
DX: I26.99 Other pulmonary embolism without acute cor pulmonale (principal)
CPT/HCPCS: 71275; Q9967

== ENCOUNTER → 2020-05-17 | Day surgery (SDC) | payer OTHER ==
[~2020-05-17] MED LIST changes: +HYDROmorphone 2 MG/ML VIAL IV PRN; -IOHEXOL 350 MG/ML 100 ML VIAL. IV ONE; +IV RINGERS,LACTATED 1000ML 1,000 ML IV SCH; +LIDOCAINE 1% PF 2 ML VIAL. ID PRN; +MORPHINE SULFATE 2 MG/ML VIAL. IV PRN; +ONDANSETRON PF 4 MG/2 ML VIAL. IV PRN; +PROCHLORPERAZINE 10 MG/2 ML VIAL. IV PRN; +PROPOFOL 10 MG/ML (20ML) VIAL. IV ONE; +fentaNYL PF VIAL 100 MCG/2 ML VIAL IV PRN
--- NOTE | 2020-05-17 13:18 | PDOC4 ---
PROCEDURE Procedure Colonoscopy/EGD with biopsies Indication: EN Meds: per anesthesia Findings: BENIGNO--Normal --'Scope advanced to TI. Prep good. Mucosa normal throughout. No polyps, diverticula, masses. IH's on retroflex, grade I. E--Grade A esophagitis at 35cm. G--Normal, antral biopsies D--Normal to third portion, biopsies second portion. Manav. well. IMP: Reflux esophagitis, asymptomatic Internal hemorrhoids. No overt cause for the anemia seen. REC: Resume meds, diet. Await path. Consider pelvic sono. Consider SBCE if no answers from above. F/u in 2 weeks. SHANIQUE GAR MD May 17, 2020 13:18
[2020-05-17 13:42] VITALS: BP 117/78
--- NOTE | 2020-05-19 18:19 | PATHOLOGY ---
[facility] Accession Number: [id number] . 01 Material submitted: . PART A: duodenum - DUODENAL BIOPSY PART B: stomach - ANTRAL BIOPSY . 01 Clinical history: . ANEMIA . 02 Diagnosis: A. Duodenal biopsies: - No significant pathologic abnormalities. . B. Gastric biopsies, antrum: - Active chronic gastritis, moderate to marked, with numerous Helicobacter organisms identified. . (JPM:mari; 05/19/2020) MBR 05/19/2020 1057 Local . 02 Comment: Sections of the duodenal biopsy reveal segments of duodenal and small intestine mucosa. Where best oriented, mucosal villi show no sprue-like changes or significant inflammatory changes. . Sections of the gastric antral biopsy show moderate to marked active chronic inflammation. A properly controlled immunoperoxidase stain for Helicobacter reveals numerous Helicobacter organisms. . (JPM:mari; 05/19/2020) . Special stain performed: Immunoperoxidase stain for Helicobacter on B1. . 02 Electronically signed: . Damion Gentile MD, Pathologist NPI- [id number] . 01 Gross description: . A. The specimen is received in formalin, labeled "Lb, Lesa, duodenal BX" and consists of multiple fragments of manuel tissue measuring 0.8 x 0.7 x 0.3 cm in aggregate which are entirely submitted in A1. . B. The specimen is received in formalin, labeled "Lb, Lesa, antral BX" and consists of 3 fragments of pink-manuel tissue measuring between 0.2 x 0.2 cm and 0.5 x 0.2 cm which are entirely submitted in B1. (SDY; 05/18/2020) SYU/SYU 05/18/2020 1101 Local . 02 Pathologist provided ICD-10: K29.50, B96.81, D64.9 . 02 CPT . 063524, 484948, U12635 Specimen Comment: A courtesy copy of this report has been sent to [phone], [phone] Specimen Comment: [id number] Specimen Comment: Report sent to / DR AGUDELO Performed at: 01 [facility] [address], [place] [id number] MD Adi Lainez MD Phone: [phone] Performed at: 02 [facility] [address], [place] [id number] MD Damion Gentile MD Phone: [phone]
== END ==
LOC: ENDOS 11:46
PROVIDERS: ATTEND Internal Medicine Gastroenterology
DX: D50.9 Iron deficiency anemia, unspecified (principal); K21.00 Gastro-esophageal reflux disease with esophagitis, without bleeding; K64.0 First degree hemorrhoids; K29.50 Unspecified chronic gastritis without bleeding; I10 Essential (primary) hypertension; E78.5 Hyperlipidemia, unspecified; E78.00 Pure hypercholesterolemia, unspecified; B96.81 Helicobacter pylori [H. pylori] as the cause of diseases classified elsewhere; Z88.8 Allergy status to other drugs, medicaments and biological substances; Z20.828 Contact with and (suspected) exposure to other viral communicable diseases; Z79.899 Other long term (current) drug therapy
CPT/HCPCS: 43239; 45378; 81025; 87426; C9803; J2704; U0003

== ENCOUNTER → 2020-10-07 | Outpatient (CLI) | payer OTHER ==
[2020-05-17 13:42] VITALS: BP 117/78
[~2020-10-07] MED LIST changes: +GEMF600T20 PO; -GEMF600T8 PO; -HYDROmorphone 2 MG/ML VIAL IV PRN; -IV RINGERS,LACTATED 1000ML 1,000 ML IV SCH; -LIDOCAINE 1% PF 2 ML VIAL. ID PRN; -MORPHINE SULFATE 2 MG/ML VIAL. IV PRN; -ONDANSETRON PF 4 MG/2 ML VIAL. IV PRN; -PROCHLORPERAZINE 10 MG/2 ML VIAL. IV PRN; -PROPOFOL 10 MG/ML (20ML) VIAL. IV ONE; -fentaNYL PF VIAL 100 MCG/2 ML VIAL IV PRN
[2020-10-07 14:18] LABS: BASO % 1 % (0-3); EOS # 0.2 x10^3/uL (0.0-0.7); EOS % 5 % (0-3); HEMATOCRIT 38.5 % (36.0-47.0); HEMOGLOBIN 12.9 g/dL (12.0-15.5); LYMPH # 1.9 x10^3/uL (1.0-4.8); LYMPH % 37 % (24-48); MEAN CORPUSCULAR HEMOGLOBIN 26 pg (25-35); MEAN CORPUSCULAR HGB CONC 34 g/dL (31-37); MEAN CORPUSCULAR VOLUME 76 fL (79-100); MONO # 0.3 x10^3/uL (0.0-1.1); MONO % 6 % (0-9); NEUT # 2.6 x10^3/uL (1.8-7.7); NEUT % 51 % (31-73); PLATELET COUNT 310 x10^3/uL (140-400); RED BLOOD COUNT 5.07 x10^6/uL (3.50-5.40); RED CELL DISTRIBUTION WIDTH 15.2 % (11.5-14.5)
[2020-10-07 14:48] LABS: ALBUMIN 3.6 g/dL (3.4-5.0); ALBUMIN/GLOBULIN RATIO 0.8 (1.0-1.7); ALK PHOS 64 U/L (46-116); ALT (SGPT) 33 U/L (14-59); ANION GAP 9 (6-14); AST (SGOT) 23 U/L (15-37); BLOOD UREA NITROGEN 12 mg/dL (7-20); BUN/CREATININE RATIO 24 (6-20); CALCIUM 8.9 mg/dL (8.5-10.1); CARBON DIOXIDE 26 mmol/L (21-32); CHLORIDE 100 mmol/L (98-107); CHOLESTEROL 221 mg/dL (0-200); CREATINE KINASE 114 U/L (26-192); CREATININE 0.5 mg/dL (0.6-1.0); GFR 131.7; GLUCOSE 108 mg/dL (70-99); HDLC 26 mg/dL (40-60); POTASSIUM 3.6 mmol/L (3.5-5.1); SODIUM 135 mmol/L (136-145); TOTAL BILIRUBIN 0.3 mg/dL (0.2-1.0); TOTAL PROTEIN 8.1 g/dL (6.4-8.2); TRIGLYCERIDES 855 mg/dL (0-150); VLDLC 171 mg/dL (0-40)
[2020-10-07 14:50] LABS: CHOLESTEROL/HDL RATIO 8.5
== END ==
LOC: LAB 13:58
PROVIDERS: ATTEND Internal Medicine
DX: E78.2 Mixed hyperlipidemia (principal); I10 Essential (primary) hypertension
CPT/HCPCS: 36415; 80053; 80061; 82550; 85025

== ENCOUNTER 2021-02-16 15:42 | Emergency (ER) | payer OTHER ==
[2021-02-16 20:10] VITALS: BP 167/104
== END 2021-02-16 20:24 | disposition left against medical advice (07) ==
LOC: ER 15:42
DX: I10 Essential (primary) hypertension (principal); R51.9 Headache, unspecified; Z53.21 Procedure and treatment not carried out due to patient leaving prior to being seen by health care provider

== ENCOUNTER → 2021-02-18 | Outpatient (CLI) | payer OTHER ==
[2021-02-16 20:10] VITALS: BP 167/104
[2021-02-18 09:02] LABS: BASO % 1 % (0-3); EOS # 0.3 x10^3/uL (0.0-0.7); EOS % 4 % (0-3); HEMATOCRIT 39.7 % (36.0-47.0); HEMOGLOBIN 13.3 g/dL (12.0-15.5); LYMPH # 2.3 x10^3/uL (1.0-4.8); LYMPH % 37 % (24-48); MEAN CORPUSCULAR HEMOGLOBIN 27 pg (25-35); MEAN CORPUSCULAR HGB CONC 34 g/dL (31-37); MEAN CORPUSCULAR VOLUME 79 fL (79-100); MONO # 0.3 x10^3/uL (0.0-1.1); MONO % 6 % (0-9); NEUT # 3.1 x10^3/uL (1.8-7.7); NEUT % 52 % (31-73); PLATELET COUNT 336 x10^3/uL (140-400); RED BLOOD COUNT 5.02 x10^6/uL (3.50-5.40); RED CELL DISTRIBUTION WIDTH 13.7 % (11.5-14.5)
[2021-02-18 09:24] LABS: ALBUMIN 3.8 g/dL (3.4-5.0); ALBUMIN/GLOBULIN RATIO 0.9 (1.0-1.7); CREATININE 0.6 mg/dL (0.6-1.0); GFR 106.7; POTASSIUM 3.8 mmol/L (3.5-5.1); TOTAL BILIRUBIN 0.3 mg/dL (0.2-1.0)
[2021-02-18 09:28] LABS: CHOLESTEROL/HDL RATIO 8.3
[2021-02-19 01:16] LABS: HEMOGLOBIN A1C 5.7 % (4.8-5.6)
== END ==
LOC: LAB 08:37
PROVIDERS: ATTEND Internal Medicine
DX: I10 Essential (primary) hypertension (principal); E78.2 Mixed hyperlipidemia; R73.09 Other abnormal glucose
CPT/HCPCS: 36415; 80053; 80061; 82550; 83036; 85025

== ENCOUNTER → 2021-02-22 | Outpatient (CLI) | payer OTHER ==
[2021-02-16 20:10] VITALS: BP 167/104
--- NOTE | 2021-02-22 11:51 | RAD ---
EXAM: Bilateral digital screening mammogram with tomosynthesis. HISTORY: 50-year-old female presents for screening mammography. TECHNIQUE: Full-field digital craniocaudal and mediolateral oblique 2D and 3D tomosynthesis images of both breasts are obtained for evaluation. Computer aided detection was applied. COMPARISON: None. This is a baseline mammogram. BREAST PARENCHYMAL DENSITY: Level D - Extremely dense. FINDINGS: There is no suspicious mass, microcalcification or region of architectural distortion. Ther e are multiple areas of nodularity and asymmetry within both breasts which are benign in appearance. This includes a small circumscribed nodule within the left axillary tail which is likely an axillary tail lymph node or cyst based on configuration. There is a cluster of coarse microcalcifications with in the posterior 2:00 position of the left breast, the appearance of which favors a benign etiology s uch as a degenerating fibroadenoma. There are several additional benign calcifications within both br easts. IMPRESSION: BI-RADS Category 2: Benign finding(s). RECOMMENDATION: Annual mammography is recommended. If your mammogram demonstrates that you have dense breast tissue, which could hide abnormalities, and if you have other risk factors for breast cancer that have been identified, you might benefit from s upplemental screening tests that may be suggested by your ordering physician. Dense breast tissue, i n and of itself, is a relatively common condition. This information is not provided to cause undue c oncern, but rather to raise your awareness and to promote discussion with your physician regarding th e presence of other risk factors, in addition to dense breast tissue. A report of your mammography re sults will be sent to you and your physician. You should contact your physician if you have any ques tions or concerns regarding this report. Mammography is a sensitive method for finding small breast cancers, but it does not detect them all a nd is not a substitute for careful clinical examination. A negative mammogram does not negate a clin ically suspicious finding and should not result in delay in biopsying a clinically suspicious abnorma lity. PQRS compliance statement - Patient information was entered into a reminder system with a target due date for the next mammogram. "Our facility is accredited by the [employer] Mammography Program." Electronically signed by: Katie Jaffe MD (02/22/2021 11:49 AM) [id number]
== END ==
LOC: MAMMO 10:39
PROVIDERS: ATTEND Internal Medicine
DX: Z12.31 Encounter for screening mammogram for malignant neoplasm of breast (principal)
CPT/HCPCS: 77063; 77067

== ENCOUNTER → 2021-05-13 | Outpatient (CLI) | payer OTHER ==
[2021-05-13 10:48] LABS: BASO % 1 % (0-3); EOS # 0.5 x10^3/uL (0.0-0.7); EOS % 6 % (0-3); HEMATOCRIT 35.5 % (36.0-47.0); HEMOGLOBIN 11.9 g/dL (12.0-15.5); LYMPH # 1.9 x10^3/uL (1.0-4.8); LYMPH % 22 % (24-48); MEAN CORPUSCULAR HEMOGLOBIN 27 pg (25-35); MEAN CORPUSCULAR HGB CONC 34 g/dL (31-37); MEAN CORPUSCULAR VOLUME 81 fL (79-100); MONO # 0.4 x10^3/uL (0.0-1.1); MONO % 5 % (0-9); NEUT # 5.8 x10^3/uL (1.8-7.7); NEUT % 66 % (31-73); PLATELET COUNT 348 x10^3/uL (140-400); RED BLOOD COUNT 4.37 x10^6/uL (3.50-5.40); RED CELL DISTRIBUTION WIDTH 13.8 % (11.5-14.5); WHITE BLOOD COUNT 8.7 x10^3/uL (4.0-11.0)
[2021-05-13 11:10] LABS: ALBUMIN 3.4 g/dL (3.4-5.0); ALBUMIN/GLOBULIN RATIO 0.8 (1.0-1.7); CALCIUM 9.1 mg/dL (8.5-10.1); CREATININE 0.6 mg/dL (0.6-1.0); GFR 106.7; POTASSIUM 3.8 mmol/L (3.5-5.1); TOTAL BILIRUBIN 0.2 mg/dL (0.2-1.0); TOTAL PROTEIN 7.8 g/dL (6.4-8.2)
[2021-05-13 11:14] LABS: CHOLESTEROL/HDL RATIO 7.8
[2021-05-13 23:07] LABS: HEMOGLOBIN A1C 5.8 % (4.8-5.6)
== END ==
LOC: LAB 09:55
PROVIDERS: ATTEND Internal Medicine
DX: I10 Essential (primary) hypertension (principal); E78.2 Mixed hyperlipidemia; R73.09 Other abnormal glucose
CPT/HCPCS: 36415; 80053; 80061; 82550; 83036; 84443; 85025

== ENCOUNTER → 2021-08-11 | Outpatient (CLI) | payer OTHER ==
[2021-08-11 09:48] LABS: BASO % 1 % (0-3); EOS # 0.4 x10^3/uL (0.0-0.7); EOS % 6 % (0-3); HEMATOCRIT 38.8 % (36.0-47.0); LYMPH # 2.1 x10^3/uL (1.0-4.8); LYMPH % 35 % (24-48); MEAN CORPUSCULAR HEMOGLOBIN 27 pg (25-35); MEAN CORPUSCULAR HGB CONC 34 g/dL (31-37); MEAN CORPUSCULAR VOLUME 79 fL (79-100); MONO # 0.3 x10^3/uL (0.0-1.1); MONO % 6 % (0-9); NEUT # 3.3 x10^3/uL (1.8-7.7); NEUT % 53 % (31-73); PLATELET COUNT 309 x10^3/uL (140-400); RED BLOOD COUNT 4.92 x10^6/uL (3.50-5.40); RED CELL DISTRIBUTION WIDTH 13.4 % (11.5-14.5); WHITE BLOOD COUNT 6.1 x10^3/uL (4.0-11.0)
[2021-08-11 10:11] LABS: ALBUMIN 3.6 g/dL (3.4-5.0); ALBUMIN/GLOBULIN RATIO 0.9 (1.0-1.7); ALK PHOS 62 U/L (46-116); ALT (SGPT) 43 U/L (14-59); ANION GAP 6 (6-14); AST (SGOT) 27 U/L (15-37); BLOOD UREA NITROGEN 10 mg/dL (7-20); BUN/CREATININE RATIO 17 (6-20); CALCIUM 8.3 mg/dL (8.5-10.1); CARBON DIOXIDE 27 mmol/L (21-32); CHLORIDE 103 mmol/L (98-107); CHOLESTEROL 195 mg/dL (0-200); CHOLESTEROL/HDL RATIO 7.2; CREATINE KINASE 104 U/L (26-192); CREATININE 0.6 mg/dL (0.6-1.0); GFR 106.3; GLUCOSE 89 mg/dL (70-99); HDLC 27 mg/dL (40-60); POTASSIUM 3.3 mmol/L (3.5-5.1); SODIUM 136 mmol/L (136-145); TOTAL BILIRUBIN 0.2 mg/dL (0.2-1.0); TOTAL PROTEIN 7.8 g/dL (6.4-8.2); TRIGLYCERIDES 712 mg/dL (0-150); VLDLC 142 mg/dL (0-40)
[2021-08-11 10:13] LABS: FREE T4 0.85 ng/dL (0.76-1.46); THYROID STIM HORMONE (TSH) 2.491 uIU/mL (0.358-3.74)
== END ==
LOC: LAB 09:11
PROVIDERS: ATTEND Internal Medicine
DX: I10 Essential (primary) hypertension (principal); E78.2 Mixed hyperlipidemia; E03.9 Hypothyroidism, unspecified
CPT/HCPCS: 36415; 80053; 80061; 82550; 84439; 84443; 85025

== ENCOUNTER → 2021-11-16 | Outpatient (CLI) | payer OTHER ==
[2021-11-16 11:59] LABS: CHOLESTEROL 221 mg/dL (0-200); HDLC 32 mg/dL (40-60); TRIGLYCERIDES 763 mg/dL (0-150); VLDLC 153 mg/dL (0-40)
[2021-11-16 12:04] LABS: CHOLESTEROL/HDL RATIO 6.9
== END ==
LOC: LAB 11:08
PROVIDERS: ATTEND Internal Medicine
DX: E78.2 Mixed hyperlipidemia (principal)
CPT/HCPCS: 36415; 80061